=== PATIENT | female | born 1965 | race Two or more races ===

== ENCOUNTER 2023-01-22 20:29 | Emergency (ER) | payer BC, MEDICAID ==
[~2023-01-22] VITALS: Ht 162.6 cm; Wt 95.2 kg
[2023-01-22 20:35] VITALS: BP 149/90; PULSE 83; RESP 14; O2SAT 99
[2023-01-22] MEDS ORDERED: HYDROcodone-ACET 10/325MG TAB PO ONE (22:00)
[2023-01-22] MEDS ORDERED: MAALOX PLUS or MAALOX 30 ML PO ONE (22:00)
[2023-01-22] MEDS ORDERED: LIDOCAINE VISCOUS 2% 15ML UD PO ONE (22:00)
[2023-01-22] MEDS ORDERED: ONDANSETRON ODT 4 MG TAB PO ONE (22:00)
== END 2023-01-22 23:00 | disposition left against medical advice (07) ==
LOC: ER 20:29 → EDBD 20:29 → ER 23:00
DX: K51.90 Ulcerative colitis, unspecified, without complications (principal); J45.909 Unspecified asthma, uncomplicated; E78.5 Hyperlipidemia, unspecified

== ENCOUNTER 2023-01-26 06:37 | Emergency (ER) | payer BC, MEDICAID ==
[~2023-01-26] VITALS: Ht 154.9 cm; Wt 97.4 kg
[2023-01-26] MEDS ORDERED: ASPirin 325 MG TAB PO ONE (06:45)
[2023-01-26 07:26] LABS: Eosinophils # (auto) 0.3 10 ^3/uL (0-0.8); Eosinophils % (auto) 3.6 % (0.0-7.0); Hematocrit 34.2 % (36.0-46.0); Hemoglobin 10.7 g/dL (12.2-16.2); Lymphocytes # (auto) 1.7 10 ^3/uL (0.4-5.4); Mean Corpuscular Hemoglobin 23.6 pg (28.0-32.0); Mean Corpuscular Hgb Conc. 31.3 g/dL (32.0-36.0)
[2023-01-26 07:30] LABS: Basophils # (auto) 0.1 10 ^3/uL (0-0.2); Basophils % (auto) 0.7 % (0.0-2.0); Lymphocytes % (auto) 20.1 % (10.0-50.0); Mean Corpuscular Volume 75.4 fL (80.0-100.0); Monocytes # (auto) 0.7 10 ^3/uL (0-1.3); Monocytes % (auto) 8.6 % (0.0-12.0); Neutrophils # (auto) 5.6 10 ^3/uL (1.6-8.6); Red Blood Cells 4.53 10^6/uL (4.0-5.20); Red Cell Distribution Width 19.5 % (11.8-14.3); White Blood Cell 8.4 10^3/uL (4.4-10.8)
[2023-01-26 07:39] LABS: INR 0.97 (0.9-1.15); Prothrombin Time 10.2 sec (9.3-11.8)
[2023-01-26 07:42] LABS: Urine Bacteria NONE SEEN /hpf (None Seen); Urine Blood Negative /uL (Negative); Urine Clarity Clear (Clear); Urine Color Yellow (Yellow); Urine Mucus FEW (None Seen); Urine Protein, UAD TRACE (Negative); Urine Specific Gravity 1.024 (1.001-1.035); Urine Urobilinogen Normal (Negative); Urine WBC 12 /hpf (0 - 5); Urine pH 6.5 (5.0-8.0)
[2023-01-26 07:44] LABS: Alanine Aminotransferase 13 U/L (7-40); Albumin 4.3 g/dL (3.2-4.8); Alkaline Phosphatase 86 U/L (46-116); Anion Gap 5 (5-15); Aspartate Aminotransferase 13 U/L (13-40); BUN/Creatinine Ratio 11.4 (10.0-20.0); Bilirubin, Total 0.3 mg/dL (0.2-1.0); Blood Urea Nitrogen 13 mg/dL (9-23); Calcium 8.9 mg/dL (8.7-10.4); Carbon Dioxide 27 mmol/L (20-30); Chloride 108 mmol/L (98-107); Glucose 100 mg/dL (74-106); Magnesium 1.7 mg/dL (1.6-2.6); Sodium 140 mmol/L (136-145); Total Protein 6.9 g/dL (5.7-8.2)
[2023-01-26] MEDS ORDERED: IOHEXOL 350 MG/ML 100ML IJ ONE (08:12)
[2023-01-26] MEDS ORDERED: NITR-87 PO (11:15)
[2023-01-26] MEDS ORDERED: cefTRIAXone 1GM/50ML D5W 50 ML IV ONE (13:30)
[2023-01-26] MEDS ORDERED: metroNIDAZOLE 500MG/100ML 100 ML IV ONE (13:30)
[2023-01-26] MEDS ORDERED: SODIUM CHLORIDE 0.9% 500 ML IV ONE (15:30)
[2023-01-26] MEDS ORDERED: SODIUM CHLORIDE 0.9% 1,000 ML IV ONE ×3 (15:30→16:15)
[2023-01-26] MEDS ORDERED: MORPHINE SULFATE 4 MG/ML SYR/VIAL IV ONE (16:15)
[2023-01-26] MEDS ORDERED: ONDANSETRON HCL 4 MG/2 ML VIAL IV ONE (16:15)
[2023-01-26 19:45] VITALS: PULSE 84; RESP 15; O2SAT 100
[2023-01-26 19:46] VITALS: BP 137/70; RESP 18; TEMP 98.4; O2SAT 95
[2023-01-26 19:48] VITALS: PULSE 75
== END 2023-01-26 20:05 | disposition short-term general hospital (02) ==
LOC: ER 06:37
DX: K52.9 Noninfective gastroenteritis and colitis, unspecified (principal); N39.0 Urinary tract infection, site not specified; J45.909 Unspecified asthma, uncomplicated; E78.5 Hyperlipidemia, unspecified
CPT/HCPCS: 36415; 71045; 71275; 74176; 80053; 81001; 83605; 83735; 83880; 84484; 85025; 85610; 85730; 87040; 93005; 96365; 96368; 96375; 99285; J0696; J2270; J2405; J3490; J7030; Q9967